=== PATIENT | female | born 1990 | race Caucasian/White ===

== ENCOUNTER → 2023-05-01 | Outpatient (CLI) | payer OTHER ==
[2023-05-01 16:09] LABS: HEMATOCRIT 39.2 % (36.0-47.0); HEMOGLOBIN 12.9 g/dl (12.0-15.5); MEAN CORPUSCULAR HEMOGLOBIN 26.7 pg (27.0-33.0); MEAN CORPUSCULAR HGB CONC 32.9 g/dl (32.0-36.5); MEAN CORPUSCULAR VOLUME 81.2 fl (80.0-96.0); PLATELET COUNT, AUTOMATED 228 10^3/uL (150-450); RED BLOOD COUNT 4.83 10^6/uL (4.00-5.40); WHITE BLOOD COUNT 10.2 10^3/uL (4.0-10.0)
[2023-05-01 17:02] LABS: HEMOGLOBIN A1c 5.2 % (4.0-6.0)
[2023-05-01 17:08] LABS: HIV 1&2 SCREEN NEGATIVE (NEGATIVE)
[2023-05-01 17:15] LABS: HEPATITIS C VIRUS ABY INDEX 0.05 INDEX (<0.8)
[2023-05-01 17:32] LABS: CHLAMYDIA DNA AMPLIFICATION NEGATIVE (NEGATIVE); GC DNA AMPLIFICATION NEGATIVE (NEGATIVE)
== END ==
LOC: M PLALAB 14:24
PROVIDERS: ATTEND Advanced Practice Midwife
DX: Z34.81 Encounter for supervision of other normal pregnancy, first trimester (principal)

== ENCOUNTER → 2023-05-01 | Outpatient (REF) | payer OTHER | LOC: M PLALAB 14:16 | PROVIDERS: ATTEND Advanced Practice Midwife | DX: Z34.81 Encounter for supervision of other normal pregnancy, first trimester (principal) ==

== ENCOUNTER → 2023-06-14 | Outpatient (CLI) | payer OTHER | LOC: M RAD 12:57 | PROVIDERS: ATTEND Advanced Practice Midwife | DX: Z34.92 Encounter for supervision of normal pregnancy, unspecified, second trimester (principal); Z3A.19 19 weeks gestation of pregnancy ==

== ENCOUNTER → 2023-07-19 | Outpatient (CLI) | payer OTHER | LOC: M WHC 15:22 | PROVIDERS: ATTEND Advanced Practice Midwife | DX: Z34.82 Encounter for supervision of other normal pregnancy, second trimester (principal); Z36.2 Encounter for other antenatal screening follow-up; Z3A.24 24 weeks gestation of pregnancy ==

== ENCOUNTER → 2023-08-14 | Outpatient (CLI) | payer OTHER ==
[2023-08-14 15:58] LABS: HEMATOCRIT 32.3 % (36.0-47.0); HEMOGLOBIN 10.2 g/dl (12.0-15.5); MEAN CORPUSCULAR HEMOGLOBIN 26.6 pg (27.0-33.0); MEAN CORPUSCULAR HGB CONC 31.6 g/dl (32.0-36.5); MEAN CORPUSCULAR VOLUME 84.3 fl (80.0-96.0); PLATELET COUNT, AUTOMATED 223 10^3/uL (150-450); RED BLOOD COUNT 3.83 10^6/uL (4.00-5.40); WHITE BLOOD COUNT 9.2 10^3/uL (4.0-10.0)
== END ==
LOC: M PLALAB 11:28
PROVIDERS: ATTEND Advanced Practice Midwife
DX: Z34.82 Encounter for supervision of other normal pregnancy, second trimester (principal)

== ENCOUNTER → 2023-08-22 | Outpatient (CLI) | payer OTHER | LOC: M PLALAB 12:05 | PROVIDERS: ATTEND Advanced Practice Midwife | DX: Z34.82 Encounter for supervision of other normal pregnancy, second trimester (principal) ==

== ENCOUNTER → 2023-10-01 | Outpatient (CLI) | payer OTHER | LOC: M RAD 11:35 | PROVIDERS: ATTEND Obstetrics & Gynecology | DX: O24.415 Gestational diabetes mellitus in pregnancy, controlled by oral hypoglycemic drugs (principal); Z3A.36 36 weeks gestation of pregnancy ==

== ENCOUNTER → 2023-10-09 | Outpatient (REF) | payer OTHER | LOC: M SFHCWAGY 15:02 | PROVIDERS: ATTEND Advanced Practice Midwife | DX: Z36.89 Encounter for other specified antenatal screening (principal); Z3A.36 36 weeks gestation of pregnancy ==

== ENCOUNTER 2023-10-23 12:36 | Outpatient (CLI) | payer OTHER ==
[~2023-10-23] VITALS: Ht 149.9 cm; Wt 82.6 kg
[2023-10-23 12:56] VITALS: BP 118/70
[2023-10-23] MEDS ORDERED: HOME MED LIST COMPLETE! XX SCH (14:00)
[2023-10-23] MEDS ORDERED: ACET-907 PO (14:00)
[2023-10-23] MEDS ORDERED: INSUR SQ (14:00)
[2023-10-23] MEDS ORDERED: INSUN SQ (14:00)
[2023-10-23 14:24] VITALS: BP 122/76
[2023-10-24] MEDS ORDERED: TUMS500C PO (07:53)
== END 2023-10-23 15:44 | disposition home or self-care (01) ==
LOC: M LDO 12:36
PROVIDERS: ATTEND Obstetrics & Gynecology
DX: O36.8330 Maternal care for abnormalities of the fetal heart rate or rhythm, third trimester, not applicable or unspecified (principal); O24.414 Gestational diabetes mellitus in pregnancy, insulin controlled; Z3A.38 38 weeks gestation of pregnancy
CPT/HCPCS: 59025; G0463

== ENCOUNTER 2023-10-24 07:31 | Inpatient (IN) | payer OTHER ==
[~2023-10-24] VITALS: Ht 149.9 cm; Wt 82.9 kg
[2023-10-24] VITALS (38 sets, daily range): BP systolic 83–157; BP diastolic 46–114; O2SAT 96
[~2023-10-24 07:31] MED LIST: ACET-907 PO; INSUN SQ; INSUR SQ
[2023-10-24] MEDS ORDERED: TUMS500C PO (07:53)
[2023-10-24] MEDS ORDERED: HOME MED LIST COMPLETE! XX SCH (07:55)
[2023-10-24] MEDS ORDERED: CARBOPROST TROMETHAMINE 250 MCG/ML AMP IM PRN (08:40)
[2023-10-24] MEDS ORDERED: TRANEXAMIC ACID INJection 1,000 MG in NS 100 ML IV PRN (08:40)
[2023-10-24] MEDS ORDERED: OXYTOCIN DRIP 30 UNITS in IV 1 EA IV PRN (08:40)
[2023-10-24] MEDS ORDERED: OXYTOCIN INJ 10UNITS/ML 1ML VIAL IM PRN (08:40)
[2023-10-24] MEDS ORDERED: METHYLERGONOVINE MALEATE 0.2MG/ML 1ML VIAL IM PRN (08:40)
[2023-10-24] MEDS ORDERED: LIDOCAINE 1% MDV 20ML VIAL INFIL PRN (08:40)
[2023-10-24] MEDS: miSOPROStol 50MCG 1/2 TABLET PO SCH (09:01)
[2023-10-24 09:12] LABS: HEMATOCRIT 30.4 % (36.0-47.0); HEMOGLOBIN 9.6 g/dl (12.0-15.5); MEAN CORPUSCULAR HEMOGLOBIN 25.9 pg (27.0-33.0); MEAN CORPUSCULAR HGB CONC 31.6 g/dl (32.0-36.5); MEAN CORPUSCULAR VOLUME 81.9 fl (80.0-96.0); PLATELET COUNT, AUTOMATED 162 10^3/uL (150-450); RED BLOOD COUNT 3.71 10^6/uL (4.00-5.40); WHITE BLOOD COUNT 9.4 10^3/uL (4.0-10.0)
[2023-10-24 10:21] LABS: HEPATITIS C VIRUS ABY INDEX < 0.02 INDEX (<0.8)
[2023-10-24] MEDS: OXYTOCIN DRIP 30 UNITS in IV 1 EA IV SCH (14:32)
[2023-10-24] MEDS: LR 1,000 ML IV SCH (14:32)
[2023-10-24] MEDS ORDERED: NALOXONE INJ 0.4MG/1ML VIAL IV PRN (18:50)
[2023-10-24] MEDS ORDERED: diphenhydrAMINE 50MG/ML VIAL IV PRN (18:50)
[2023-10-24] MEDS ORDERED: EPIDURAL/PCA KEYS XX PRN (18:50)
[2023-10-24] MEDS ORDERED: LR 500 ML IV PRN (18:50)
[2023-10-24] MEDS ORDERED: ePHEDrine SULFATE 25 MG/5 ML(5MG/ML) SYRINGE IVP PRN (18:50)
[2023-10-24] MEDS ORDERED: ONDANSETRON 4MG 2ML VIAL IV PRN (18:50)
[2023-10-24] MEDS: FENTANYL/ROPIVACAINE/NACL BAG 100 ML EPIDURAL SCH (19:23)
[2023-10-24] MEDS ORDERED: ACETAMINOPHEN TAB 650MG DOSE (2X325MG) PO PRN (20:55)
[2023-10-24] MEDS ORDERED: METHYLERGONOVINE MALEATE 0.2 MG TAB PO PRN (20:55)
[2023-10-24] MEDS ORDERED: DIBUCAINE 1% OINTMENT 30GM TOP PRN (20:55)
[2023-10-24] MEDS ORDERED: DOCUSATE SODIUM 100MG CAPSULE PO PRN (20:55)
[2023-10-25] MEDS: IBUPROFEN 800 MG TAB PO PRN (01:34)
[2023-10-25 06:00] VITALS: BP 103/57; O2SAT 98
[2023-10-25] MEDS: PRENATAL VITAMINS CHEWABLE TABLET PO SCH (07:45)
[2023-10-25] MEDS: IBUPROFEN 600MG TAB PO PRN (07:46)
[2023-10-25] MEDS: RHO(D) IMMUNE GLOBULIN/MALTOSE 500MCG(2500IU)/2.2ML VIAL (WINRHO) IM SCH (15:25)
[2023-10-25 17:34] VITALS: BP 112/60; O2SAT 99
[2023-10-25] MEDS: ACETAMINOPHEN 500 MG TAB PO PRN (19:58)
[2023-10-26 06:00] VITALS: BP 115/59; O2SAT 98
[2023-10-26] MEDS: MEASLES,MUMPS,RUBELLA VACCINE INJ (MMR-II) SC.IMMUN ONE (09:00)
== END 2023-10-26 18:00 | disposition home or self-care (01) | DRG 560 ==
LOC: M LDI 07:31 → M OBS 22:25
PROVIDERS: ADMIT Advanced Practice Midwife; ATTEND Advanced Practice Midwife
PROC: 10E0XZZ Delivery of Products of Conception, External Approach (ICD-10-PCS; principal; 2023-10-24)
PROC: 3E0P7VZ Introduction of Hormone into Female Reproductive, Via Natural or Artificial Opening (ICD-10-PCS; 2023-10-24)
PROC: 3E033VJ Introduction of Other Hormone into Peripheral Vein, Percutaneous Approach (ICD-10-PCS; 2023-10-24)
DX: O24.424 Gestational diabetes mellitus in childbirth, insulin controlled (principal); O69.82X0 Labor and delivery complicated by other cord entanglement, without compression, not applicable or unspecified; Z37.0 Single live birth; Z3A.38 38 weeks gestation of pregnancy

== ENCOUNTER → 2023-12-24 | Outpatient (REF) | payer OTHER ==
[~2023-12-24] MED LIST changes: +TUMS500C PO
[2023-12-26 16:03] LABS: HPV APTIMA Not Detected (Not Detected)
== END ==
LOC: M SFHCWAGY 17:58
PROVIDERS: ATTEND Advanced Practice Midwife
DX: Z12.4 Encounter for screening for malignant neoplasm of cervix (principal)

== ENCOUNTER → 2024-09-10 | Outpatient (CLI) | payer OTHER ==
[2024-09-10 13:43] LABS: GLUCOSE CHALLENGE TEST 1 HOUR 119 MG/DL (LESS THAN 140)
[2024-09-10 13:57] LABS: HEMATOCRIT 37.6 % (36.0-47.0); HEMOGLOBIN 11.8 g/dl (12.0-15.5); MEAN CORPUSCULAR HEMOGLOBIN 26.8 pg (27.0-33.0); MEAN CORPUSCULAR HGB CONC 31.4 g/dl (32.0-36.5); MEAN CORPUSCULAR VOLUME 85.5 fl (80.0-96.0); PLATELET COUNT, AUTOMATED 217 10^3/uL (150-450); WHITE BLOOD COUNT 8.7 10^3/uL (4.0-10.0)
[2024-09-10 14:28] LABS: Trichomonas vaginalis (AMP) NOT DETECTED (NEGATIVE)
[2024-09-10 14:44] LABS: HIV 1&2 SCREEN NEGATIVE (NEGATIVE)
[2024-09-10 14:52] LABS: GC DNA AMPLIFICATION NEGATIVE (NEGATIVE); HEPATITIS C VIRUS ABY INDEX 0.03 INDEX (<0.8)
== END ==
LOC: M PLALAB 09:42
PROVIDERS: ATTEND Advanced Practice Midwife
DX: Z34.81 Encounter for supervision of other normal pregnancy, first trimester (principal); Z3A.00 Weeks of gestation of pregnancy not specified

== ENCOUNTER → 2024-12-17 | Outpatient (CLI) | payer OTHER | LOC: M RAD 12:57 | PROVIDERS: ATTEND Advanced Practice Midwife | DX: Z34.82 Encounter for supervision of other normal pregnancy, second trimester (principal); Z3A.25 25 weeks gestation of pregnancy ==

== ENCOUNTER → 2025-01-14 | Outpatient (CLI) | payer OTHER ==
[2025-01-14 13:33] LABS: PLATELET COUNT, AUTOMATED 210 10^3/uL (150-450)
[2025-01-14 13:42] LABS: GLUCOSE CHALLENGE TEST 1 HOUR 152 MG/DL (LESS THAN 140)
[2025-01-14 14:12] LABS: HIV 1&2 SCREEN NEGATIVE (NEGATIVE)
[2025-01-14 14:19] LABS: HEPATITIS C VIRUS ABY INDEX < 0.02 INDEX (<0.8)
[2025-01-14 14:38] LABS: Trichomonas vaginalis (AMP) NOT DETECTED (NEGATIVE)
[2025-01-14 15:02] LABS: GC DNA AMPLIFICATION NEGATIVE (NEGATIVE)
== END ==
LOC: M PLALAB 10:44
PROVIDERS: ATTEND Nurse Practitioner Family
DX: Z34.82 Encounter for supervision of other normal pregnancy, second trimester (principal)
CPT/HCPCS: 36415; 82950; 85027; 86780; 86803; 86850; 86900; 86901; 87389; 87661; 87810; 87850; J2790

== ENCOUNTER → 2025-02-26 | Outpatient (REF) | payer OTHER | LOC: M SFHCWAGY 14:49 | PROVIDERS: ATTEND Advanced Practice Midwife | DX: Z34.80 Encounter for supervision of other normal pregnancy, unspecified trimester (principal) ==

== ENCOUNTER → 2025-03-05 | Outpatient (CLI) | payer OTHER ==
[~2025-03-05] MED LIST changes: +ACET-897 PO; +METF500T13 PO
== END ==
LOC: M WHC 13:50
PROVIDERS: ATTEND Advanced Practice Midwife
DX: O24.419 Gestational diabetes mellitus in pregnancy, unspecified control (principal)

== ENCOUNTER 2025-03-16 07:24 | Inpatient (IN) | payer OTHER ==
[~2025-03-16] VITALS: Ht 149.9 cm; Wt 87.7 kg
[2025-03-16] VITALS (37 sets, daily range): BP systolic 98–141; BP diastolic 51–78; O2SAT 97–100
[~2025-03-16 07:24] MED LIST changes: -ACET-897 PO; -METF500T13 PO
[2025-03-16] MEDS ORDERED: METF500T13 PO (07:52)
[2025-03-16] MEDS ORDERED: ACET-897 PO (07:52)
[2025-03-16] MEDS ORDERED: HOME MED LIST COMPLETE! XX SCH (07:55)
[2025-03-16] MEDS ORDERED: OXYTOCIN DRIP 30 UNITS in IV 1 EA IV PRN (08:10)
[2025-03-16] MEDS ORDERED: INSULIN IV RATE CHANGE DOCUMENTATION ML/HR XX SCH (08:10)
[2025-03-16] MEDS ORDERED: LIDOCAINE 1% MDV 20 ML VIAL INFIL PRN (08:10)
[2025-03-16] MEDS ORDERED: CARBOPROST TROMETHAMINE 250 MCG/ML AMP IM PRN (08:10)
[2025-03-16] MEDS ORDERED: D5W/0.9% SODIUM CHLORIDE 1,000 ML IV SCH (08:10)
[2025-03-16] MEDS ORDERED: NS 500 ML IV ONE (08:10)
[2025-03-16] MEDS ORDERED: OXYTOCIN INJ 10UNITS/ML 1ML VIAL IM PRN (08:10)
[2025-03-16] MEDS ORDERED: LACTATED RINGER'S 1000 ML IV STA (08:10)
[2025-03-16 08:26] LABS: PLATELET COUNT, AUTOMATED 178 10^3/uL (150-450)
[2025-03-16 09:48] LABS: HIV 1&2 SCREEN NEGATIVE (NEGATIVE)
[2025-03-16 09:56] LABS: HEPATITIS C VIRUS ABY INDEX < 0.02 INDEX (<0.8)
[2025-03-16] MEDS: miSOPROStol 50 MCG 1/2 TABLET PO SCH (10:03)
[2025-03-16] MEDS: NS (Normal Saline) 0.9% 1,000 ML IV SCH (10:31)
[2025-03-16] MEDS: INSULIN REGULAR IN 0.9 % NACL 100 UNIT in IV 1 EA IV SCH (10:35)
[2025-03-16] MEDS ORDERED: EPIDURAL/PCA KEYS XX PRN (17:55)
[2025-03-16] MEDS ORDERED: diphenhydrAMINE 50 MG/ML VIAL IV PRN (17:55)
[2025-03-16] MEDS ORDERED: ONDANSETRON 4MG/2ML VIAL IV PRN (17:55)
[2025-03-16] MEDS ORDERED: NALOXONE INJ 0.4 MG/1 ML VIAL IV PRN (17:55)
[2025-03-16] MEDS ORDERED: LR 500 ML IV PRN (17:55)
[2025-03-16] MEDS: FENTANYL/ROPIVACAINE/NACL BAG 100 ML EPIDURAL SCH (19:01)
[2025-03-16] MEDS ORDERED: NS (Normal Saline) 0.9% 1,000 ML IV ONE (19:20)
[2025-03-16] MEDS: OXYTOCIN DRIP 30 UNITS in IV 1 EA IV SCH (19:57)
[2025-03-16] MEDS: TRANEXAMIC ACID INJection 1,000 MG in NS 100 ML IV PRN (21:56)
[2025-03-16] MEDS: METHYLERGONOVINE MALEATE 0.2 MG/ML 1 ML VIAL IM PRN (22:00)
[2025-03-16] MEDS: ACETAMINOPHEN 500 MG TAB PO ONE (22:23)
[2025-03-17 00:15] VITALS: BP 131/67; O2SAT 96
[2025-03-17] MEDS: IBUPROFEN 800 MG TAB PO ONE (02:28)
[2025-03-17 06:00] VITALS: BP 113/58; O2SAT 97
[2025-03-17] MEDS ORDERED: ANUSOL HC CREAM 30 GM TOP PRN (07:45)
[2025-03-17] MEDS ORDERED: ACETAMINOPHEN 325 MG TAB PO PRN (07:45)
[2025-03-17] MEDS ORDERED: IBUPROFEN 600 MG TAB PO PRN (07:45)
[2025-03-17] MEDS ORDERED: MOM 30 ML SUSPENSION UDC PO PRN (07:45)
[2025-03-17] MEDS ORDERED: DOCUSATE SODIUM 100 MG CAPSULE PO PRN (07:45)
[2025-03-17] MEDS: PRENATAL VITAMINS CHEWABLE TABLET PO SCH (08:23)
[2025-03-17] MEDS: ACETAMINOPHEN 500 MG TAB PO PRN (08:23)
[2025-03-17] MEDS: DIBUCAINE 1% OINTMENT 30 GM TOP PRN (08:24)
[2025-03-17] MEDS: IBUPROFEN 800 MG TAB PO PRN (15:46)
[2025-03-17 18:02] VITALS: BP 110/59; O2SAT 97
[2025-03-18 06:00] VITALS: BP 103/58; O2SAT 98
[2025-03-19] MEDS ORDERED: MEASLES,MUMPS,RUBELLA VACCINE INJ (MMR-II) SC.IMMUN ONE (09:00)
== END 2025-03-18 12:40 | disposition home or self-care (01) | DRG 560 ==
LOC: M LDI 07:24 → M OBS 03-17 00:13
PROVIDERS: ADMIT Advanced Practice Midwife; ATTEND Advanced Practice Midwife
PROC: 10E0XZZ Delivery of Products of Conception, External Approach (ICD-10-PCS; principal; 2025-03-16)
PROC: 3E033VJ Introduction of Other Hormone into Peripheral Vein, Percutaneous Approach (ICD-10-PCS; 2025-03-16)
PROC: 3E0DXGC Introduction of Other Therapeutic Substance into Mouth and Pharynx, External Approach (ICD-10-PCS; 2025-03-16)
DX: O24.425 Gestational diabetes mellitus in childbirth, controlled by oral hypoglycemic drugs (principal); O40.3XX0 Polyhydramnios, third trimester, not applicable or unspecified; Z37.0 Single live birth; Z3A.38 38 weeks gestation of pregnancy; O32.6XX0 Maternal care for compound presentation, not applicable or unspecified; D64.9 Anemia, unspecified; O99.02 Anemia complicating childbirth